=== PATIENT | female | born 1950 | race Caucasian/White ===

== ENCOUNTER → 2021-06-14 | Outpatient (CLI) | payer MEDICARE, BC | LOC: LAB 12:19 | DX: D48.5 Neoplasm of uncertain behavior of skin (principal); L81.4 Other melanin hyperpigmentation ==

== ENCOUNTER 2023-07-20 06:51 | Day surgery (SDC) | payer MEDICARE ==
[~2023-07-20] VITALS: Ht 167.6 cm; Wt 62.4 kg
[2023-07-20] MEDS ORDERED: ESTEST.62T VAG (07:43)
[2023-07-20] MEDS ORDERED: IBUP800 PO (07:44)
[2023-07-20 10:33] VITALS: BP 101/70
--- NOTE | 2023-07-20 10:34 | NUR ---
07/20/23 1034 JOANN BLEDSOE GIVEN DUE TO WAITING TIME TO [facility] [employer]PECT[facility] RX FROM PHARMACY
== END 2023-07-20 10:55 | disposition home or self-care (01) ==
LOC: ORSCSDS 06:51
PROVIDERS: Podiatrist Foot & Ankle Surgery
PROC: 0SGQ04Z Fusion of Left Toe Phalangeal Joint with Internal Fixation Device, Open Approach (ICD-10-PCS; principal; 2023-07-20 08:30)
PROC: 0LNW0ZZ Release Left Foot Tendon, Open Approach (ICD-10-PCS; principal; 2023-07-20 08:30)
DX: M21.6X2 Other acquired deformities of left foot (principal)
CPT/HCPCS: A9270; C1713; J0171; J0690; J1100; J2405; J2704; J2795; J3010; J7120